=== PATIENT | female | born 1980 | race African-American/Black ===

== ENCOUNTER 2021-05-09 19:42 | Emergency (ER) | payer OTHER ==
[~2021-05-09] VITALS: Ht 172.7 cm; Wt 59.0 kg
[2021-05-09 19:52] VITALS: BP 147/85
[2021-05-09] MEDS ORDERED: HYDR-4275 PO (20:38)
[2021-05-10] MEDS ORDERED: HYDR-3972 PO (12:39)
== END 2021-05-09 20:51 | disposition home or self-care (01) ==
LOC: ER 19:48
DX: K04.7 Periapical abscess without sinus (principal); K02.9 Dental caries, unspecified; Z79.899 Other long term (current) drug therapy

== ENCOUNTER 2021-05-10 12:36 | Emergency (ER) | payer OTHER ==
[~2021-05-10] VITALS: Ht 172.7 cm; Wt 59.0 kg
[~2021-05-10 12:36] MED LIST: HYDR-4275 PO
[2021-05-10] MEDS ORDERED: HYDR-3972 PO (12:39)
[2021-05-10 12:45] VITALS: BP 131/81
--- NOTE | 2021-05-10 12:52 | NUR ---
[facility] ERROR UNABLE TO PROVIDE.
== END 2021-05-10 20:00 | disposition home or self-care (01) ==
LOC: ER 14:00
DX: K02.9 Dental caries, unspecified (principal); K08.89 Other specified disorders of teeth and supporting structures; Z76.0 Encounter for issue of repeat prescription